=== PATIENT | female | born 1935 | race Caucasian/White ===

== ENCOUNTER 2016-11-13 09:45 | Emergency (ER) | payer MEDICAID, MEDICARE, OTHER ==
[~2016-11-13] VITALS: Ht 170.2 cm; Wt 75.0 kg
[2016-11-13] VITALS (17 sets, daily range): BP systolic 52–91; BP diastolic 34–50; PULSE 78–102; RESP 16–30; TEMP 98.7; O2SAT 86–98
[2016-11-13] MEDS ORDERED: ETOMIDATE 20 MG/10 ML VIAL ONE (09:55)
[2016-11-13] MEDS ORDERED: SUCCINYLCHOLINE CHLORIDE 200 MG/10 ML VIAL ONE (09:55)
[2016-11-13] MEDS ORDERED: NOREPINEPHRINE 4 MG/4 ML AMP ONE (10:05)
[2016-11-13] MEDS ORDERED: metroNIDAZOLE 500 MG INJ 100 ML IV STA (10:06)
[2016-11-13] MEDS ORDERED: CEFEPIME INJ 2,000 MG in SODIUM CHLORIDE 0.9% INJ 100 ML IV STA (10:06)
[2016-11-13] MEDS ORDERED: VANCOMYCIN INJ 1,000 MG in SODIUM CHLOR 0.9% 250 ML INJ 250 ML IV STA (10:06)
[2016-11-13] MEDS ORDERED: SODIUM CHLOR 0.9% 1000 ML INJ 1,000 ML IV ONE ×3 (10:15)
[2016-11-13 10:38] LABS: AUTOMATED NEUTROPHIL # 69.3 TH/MM3 (1.8-7.7); BASOPHIL # 0.1 TH/MM3 (0-0.2); BASOPHIL % 0.1 % (0.0-2.0); EOSINOPHIL # 0.1 TH/MM3 (0-0.4); EOSINOPHIL % 0.2 % (0.0-4.0); HEMATOCRIT 46.8 % (35.0-46.0); LYMPH % 4.4 % (9.0-44.0); LYMPHOCYTE # 3.3 TH/MM3 (1.0-4.8); MEAN CELL VOLUME 81.2 FL (80.0-100.0); MEAN CORPUSCULAR HGB CONC 30.8 % (32.0-36.0); MONO % 3.1 % (0.0-8.0); NEUT % 92.2 % (16.0-70.0); PLATELET COUNT 273 TH/MM3 (150-450); RED BLOOD COUNT 5.77 MIL/MM3 (4.00-5.30); RED CELL DISTRIBUTION WIDTH 17.4 % (11.6-17.2); WHITE BLOOD COUNT 75.2 TH/MM3 (4.0-11.0)
[2016-11-13 10:39] LABS: HEMO FLAGS AUTO DIFF
[2016-11-13] MEDS ORDERED: MIDAZOLAM HCL 2 MG/2 ML VIAL IV PUSH ONE (10:45)
--- NOTE | 2016-11-13 10:50 | RADRPT ---
EXAM DATE/TIME: 11/13/2016 10:20 [place] COMPARISON: No previous studies available for comparison. INDICATIONS: Altered mental status, unresponsive. ET tube placement MEDICAL HISTORY: None. SURGICAL HISTORY: None. ENCOUNTER: Initial ACUITY: 1 day PAIN SCORE: Non-responsive. LOCATION: Bilateral chest FINDINGS: A single view of the chest demonstrates the endotracheal tube is seen with its tip overlying the righ t bronchus. It should be slightly retracted. Some atelectasis of left lower lobe. Left upper lung is clear. Right lung is clear. CONCLUSION: ET tube below the leticia. Collapsed left lower lobe. Heraclio Duran MD on November 13, 2016 at 10:34 Board Certified Radiologist. This report was verified electronically.
[2016-11-13 10:56] LABS: INTERNATIONAL NORMALIZED RATIO 1.2 RATIO; PROTHROMBIN TIME - PATIENT 13.3 SEC (9.8-11.6)
[2016-11-13 10:57] LABS: APTT (PATIENT) 36.4 SEC (24.3-30.1)
--- NOTE | 2016-11-13 10:57 | PD ---
HPI Chief Complaint: Altered Mental Status Time Seen by Provider: 10:05 Travel History International Travel<30 days: No Contact w/Intl Traveler<30days: No Traveled to known affect area: No History of Present Illness HPI Patient is a 81-year-old female who presents to emergency room from [facility] for evaluation of altered mental status. As per EMS, patient was conversive around 5:30 AM. Reports that they went to check on her a few hours later and patient was essentially unresponsive. Reports that she is not on oxygen at home, reports that they found her with an oxygen saturation of 70% on room air. When EMS arrived on scene, they put her on a nonrebreather which brought her up to 95% pulse ox. Patient unresponsive while in the emergency room. Patient unable to provide history of present illness. Call made to patient's daughter and power of staff attorney Ms. Stephy Carreon [facility] Social History Tobacco Use: No Allergies-Medications (Allergen,Severity, Reaction): Coded Allergies: Dilaudid (Verified Allergy, Unknown, 11/13/16) Keflex (Verified Allergy, Unknown, 11/13/16) Rifampin (Verified Allergy, Unknown, 11/13/16) Review of Systems ROS Limitations: Altered Mental Status, Unresponsive Physical Exam Narrative GENERAL: severe distress SKIN: Warm and dry. Patient pale on exam HEAD: Atraumatic. Normocephalic. EYES: Pupils equal and round. No scleral icterus. No injection or drainage. ENT: No nasal bleeding or discharge. Mucous membranes pink and moist. NECK: Trachea midline. No JVD. CARDIOVASCULAR: Tachycardic No murmur appreciated. RESPIRATORY: No accessory muscle use. Clear to auscultation. Breath sounds equal bilaterally. GASTROINTESTINAL: Abdomen soft, non-tender, nondistended. Wilkins catheter in place with no urine and urine bag MUSCULOSKELETAL: No obvious deformities. No clubbing. No cyanosis. No edema. NEUROLOGICAL: Patient essentially unresponsive, GCS 3 Data Data Last Documented VS Vital Signs Date Time Temp Pulse Resp B/P Pulse Ox O2 Delivery O2 Flow Rate FiO2 11/13/16 14:37 96 Room Air 11/13/16 13:00 78 16 65/43 100 11/13/16 10:15 98.7 11/13/16 10:00 15 Orders Etomidate Inj (Amidate Inj) (11/13/16 09:55) Succinylcholine Inj (Quelicin Inj) (11/13/16 09:55) Electrocardiogram (11/13/16 10:03) Complete Blood Count With Diff (11/13/16 10:03) Comprehensive Metabolic Panel (11/13/16 10:03) Prothrombin Time / Inr (Pt) (11/13/16 10:03) Act Partial Throm Time (Ptt) (11/13/16 10:03) Lactic Acid Sepsis Protocol (11/13/16 10:03) Magnesium (Mg) (11/13/16 10:03) Lipase (11/13/16 10:03) Ckmb (Isoenzyme) Profile (11/13/16 10:03) Troponin I (11/13/16 10:03) Chest, Single Ap (11/13/16 10:03) Arterial Blood Gas (Abg) (11/13/16 10:03) Blood Glucose (11/13/16 10:03) Ecg Monitoring (11/13/16 10:03) Iv Access Insert/Monitor (11/13/16 10:03) Oximetry (11/13/16 10:03) Oxygen Administration (11/13/16 10:03) Norepinephrine Inj (Levophed Inj) (11/13/16 10:05) Place Ng Tube To Low Intermit (11/13/16 10:05) Blood Culture (11/13/16 10:06) Vancomycin Inj (Vancomycin Inj) (11/13/16 10:06) Cefepime Inj (Maxipime Inj) (11/13/16 10:06) Metronidazole 500 Mg Inj (Flagyl 500 Mg (11/13/16 10:06) Sodium Chlor 0.9% 1000 Ml Inj (Ns 1000 M (11/13/16 10:15) Sodium Chlor 0.9% 1000 Ml Inj (Ns 1000 M (11/13/16 10:15) Sodium Chlor 0.9% 1000 Ml Inj (Ns 1000 M (11/13/16 10:15) Insert Temp Sensing Wilkins Cath (11/13/16 10:12) Midazolam Inj (Versed Inj) (11/13/16 10:45) CKMB (11/13/16 10:05) CKMB% (11/13/16 10:05) Consult Palliative Care (11/13/16 ) Hospice Consult (11/13/16 12:26) Code Status (11/13/16 12:35) (Hub Use Only)Inp Phy Cons/Ref (11/13/16 ) Vital Signs (Adult) TONIA.QSHIFT (11/13/16 13:25) ^ Send Patient To (11/13/16 13:25) Discontinue Ng Tube (11/13/16 13:25) ^ Other Nursing Orders (11/13/16 13:25) Morphine Inj (Morphine Inj) (11/13/16 13:30) Lorazepam Inj (Ativan Inj) (11/13/16 13:30) Morphine Inj (Morphine Inj) (11/13/16 13:45) Lorazepam Inj (Ativan Inj) (11/13/16 13:45) Morphine Inj (Morphine Inj) (11/13/16 16:00) Morphine Inj (Morphine Inj) (11/13/16 14:00) Morphine Inj (Morphine Inj) (11/13/16 14:00) Lorazepam Inj (Ativan Inj) (11/13/16 16:00) Lorazepam Inj (Ativan Inj) (11/13/16 14:00) Lorazepam Inj (Ativan Inj) (11/13/16 14:00) Lorazepam Inj (Ativan Inj) (11/13/16 14:00) Acetaminophen Supp (Tylenol Supp) (11/13/16 14:00) Furosemide Inj (Lasix Inj) (11/13/16 14:00) Bisacodyl Supp (Dulcolax Supp) (11/13/16 14:00) Resp Extubation (11/13/16 ) Physician Name Changes (11/13/16 ) Sodium Chloride 0.9% Flush (Ns Flush) (11/13/16 13:45) Sodium Chloride 0.9% Flush (Ns Flush) (11/14/16 09:00) Atropine 1% Opth Soln (Atropine 1% Opth (11/13/16 13:45) Labs Laboratory Tests Test 11/13/16 11/13/16 10:05 11:08 White Blood Count 75.2 TH/MM3 Red Blood Count 5.77 MIL/MM3 Hemoglobin 14.4 GM/DL Hematocrit 46.8 % Mean Corpuscular Volume 81.2 FL Mean Corpuscular Hemoglobin 25.0 PG Mean Corpuscular Hemoglobin 30.8 % Concent Red Cell Distribution Width 17.4 % Platelet Count 273 TH/MM3 Mean Platelet Volume 10.8 FL Neutrophils (%) (Auto) 92.2 % Lymphocytes (%) (Auto) 4.4 % Monocytes (%) (Auto) 3.1 % Eosinophils (%) (Auto) 0.2 % Basophils (%) (Auto) 0.1 % Neutrophils # (Auto) 69.3 TH/MM3 Lymphocytes # (Auto) 3.3 TH/MM3 Monocytes # (Auto) 2.4 TH/MM3 Eosinophils # (Auto) 0.1 TH/MM3 Basophils # (Auto) 0.1 TH/MM3 CBC Comment AUTO DIFF Differential Total Cells 100 Counted Neutrophils % (Manual) 47 % Band Neutrophils % 33 % Lymphocytes % 8 % Monocytes % 8 % Neutrophils # (Manual) 63.2 TH/MM3 Metamyelocytes 4 % Differential Comment FINAL DIFF MANUAL Toxic Granulation 1+ Platelet Estimate NORMAL Platelet Morphology Comment NORMAL Red Cell Morphology Comment NORMAL Prothrombin Time 13.3 SEC Prothromb Time International 1.2 RATIO Ratio Activated Partial 36.4 SEC Thromboplast Time Sodium Level 135 MEQ/L Potassium Level 4.2 MEQ/L Chloride Level 97 MEQ/L Carbon Dioxide Level 12.9 MEQ/L Anion Gap 25 MEQ/L Blood Urea Nitrogen 18 MG/DL Creatinine 2.64 MG/DL Estimat Glomerular Filtration 17 ML/MIN Rate Random Glucose 119 MG/DL Lactic Acid Level 13.4 mmol/L Calcium Level 9.6 MG/DL Magnesium Level 4.2 MG/DL Total Bilirubin 1.5 MG/DL Aspartate Amino Transf 55 U/L (AST/SGOT) Alanine Aminotransferase 26 U/L (ALT/SGPT) Alkaline Phosphatase 144 U/L Total Creatine Kinase 203 U/L Creatine Kinase MB 6.1 NG/ML Creatine Kinase MB % 3.0 % Troponin I 0.77 NG/ML Total Protein 7.6 GM/DL Albumin 3.4 GM/DL Lipase 1883 U/L Blood Gas Puncture Site LT RADIAL Blood Gas Patient Temperature 98.6 Blood Gas HCO3 9 mmol/L Blood Gas Base Excess -18.2 mmol/L Blood Gas Oxygen Saturation 95 % Arterial Blood pH 7.12 Arterial Blood Partial 30 mmHg Pressure CO2 Arterial Blood Partial 274 mmHG Pressure O2 Arterial Blood Oxygen Content 15.9 Vol % Arterial Blood 1.5 % Carboxyhemoglobin Arterial Blood Methemoglobin 2.2 % Blood Gas Hemoglobin 11.4 G/DL Oxygen Delivery Device VENTILATOR Blood Gas Ventilator Setting AC 16/500/5+ Blood Gas Inspired Oxygen 100 % MDM Medical Decision Making Medical Screen Exam Complete: Yes Emergency Medical Condition: Yes Interpretation(s) EKG at 1009: Normal sinus rhythm at 93 bpm, PT/QTc 381/431, moderate ST segment depression on lateral leads Vital Signs Date Time Temp Pulse Resp B/P Pulse Ox O2 Delivery O2 Flow Rate FiO2 11/13/16 10:07 87 100 11/13/16 09:45 98.7 78 30 59/46 86 Differential Diagnosis CVA, intracranial hemorrhage, ACS, electrolyte abnormality, septic shock secondary to urinary tract infection versus pneumonia, influenza, ruptured bladder Narrative Course Patient is a 81-year-old female who presents to emergency room for evaluation of altered mental status. Patient was last seen normal around 5:30 AM this morning and was apparently awake and alert and oriented. [facility], they wanted checked up on patient prior to arrival to emergency room, reports that patient was unresponsive with a pulse ox of 70% on room air. When EMS arrived on scene, patient was placed on a nonrebreather and pulse ox went up to 95%. Patient was unresponsive in the emergency room with a GCS of 3. Call made to patient's POA and daughter Mrs. Stephy Carreon to review CODE STATUS. Mrs Murphy request that patient be made full code until she can go home and get pt 's advanced directives. Patient was intubated for airway protection after conversation with daughter Patient's daugher's Stephy Carreon (POA) and Daphne Vish at bedside, request that CPR not be initiated if pt goes into cardiac arrest Patient's daughter, Ms. Wahl reports that patient was complaining of severe bladder spasms yesterday. Reports that the [facility] to change the Wilkins catheter yesterday. Patient told her daughter prior to daughter leaving that her pain last night to her bladder was the worst pain in her life. Concern for possible ruptured bladder. Wilkins catheter from penitentiary was removed as there was no urine output, and new catheter was placed, blake blood coming out of wilkins patient now with blood coming out of her OG tube and gross melana from her rectrum patient also with collapsed left lung WBC 75.2 with shift with bandemia Lactate 13.4 trop 0.77 Case discussed with pt's family. Understands poor prognosis. Family (GONZALO Carreon) request that patient be on comfort care. They do not want any life sustaining procedures performed, they do not want central line for IV pressors placed or a chest tube placed. Request that patient be made comfortable at this time. Call made to [facility] - reviewed case with Dr. Eric Carlos - will see patient in consult. Patient was seen by Dr. Eric Carlos, family request that patient be placed on hospice Care of patient transferred to Dr Eric Carlos to hospice facility Critical Care Narrative Aggregate critical care time was 75 minutes. Time to perform other separately billable procedures was not included in the critical care time. My time did not include minutes spent treating any other patients simultaneously or on activities that did not directly contribute to the patient's treatment. The services I provided to this patient were to treat and/or prevent clinically significant deterioration that could result in: , decompensation, deterioration I provided critical care services requiring my management, as noted below: Chart data review, documentation time, medication orders and management, vital sign assessments/reviewing monitor data, ordering and reviewing lab tests, ordering and interpreting/reviewing x-rays and diagnostic studies, care of the patient and discussion of the patient with the admitting physicians. Procedures Procedure Narrative After the risks and benefits were discussed the following procedure was performed: INTUBATION: The patient was put in optimal position for the procedure. Rapid sequence intubation was initiated by me". The patient was intubated with a 7.5 cuffed endotracheal tube. Tube placement was confirmed by visualization of the tube and balloon passing through the cords, capnometry and subsequent chest x-ray. Breath sounds were equal and well aerated bilaterally postintubation. No breath sounds over stomach. Patient tolerated procedure well. Diagnosis Primary Impression: Hospice care Ashley Carlos DO Nov 13, 2016 10:57
[2016-11-13 10:59] LABS: ANION GAP 25 MEQ/L (5-15); AST (GOT) 55 U/L (15-37); BICARBONATE 12.9 MEQ/L (21.0-32.0); BLOOD UREA NITROGEN 18 MG/DL (7-18); CHLORIDE 97 MEQ/L (98-107); GLOMERULAR FILTRATION RATE 17 ML/MIN (>89); MAGNESIUM 4.2 MG/DL (1.5-2.5); POTASSIUM 4.2 MEQ/L (3.5-5.1); SODIUM (NA) 135 MEQ/L (136-145)
[2016-11-13 11:09] LABS: ALKALINE PHOSPHATASE 144 U/L (45-117); ALT (GPT) 26 U/L (10-53); CREATINE KINASE 203 U/L (26-192); TOTAL BILIRUBIN ADULT 1.5 MG/DL (0.2-1.0)
[2016-11-13 11:12] LABS: BLOOD GAS BASE EXCESS -18.2 mmol/L (-2-2); BLOOD GAS CARBOXYHEMOGLOBIN 1.5 % (0-4); BLOOD GAS HCO3 9 mmol/L (22-26); BLOOD GAS METHEMOGLOBIN 2.2 % (0-2); BLOOD GAS O2 HGB SATURATION 95 % (90-100); BLOOD GAS OXYGEN CONTENT 15.9 Vol % (12.0-20.0); BLOOD GAS PCO2 30 mmHg (38-42); BLOOD GAS PO2 274 mmHG (61-120); BLOOD GAS TOTAL HGB 11.4 G/DL (12.0-16.0); CRITICAL VALUE YES; DRAW SITE LT RADIAL; FIO2 100 %; NUMBER OF ARTERIAL PUNCTURES 2; OXYGEN DEVICE VENTILATOR; STAT YES; TEMP CORR TO 98.6; ULNAR PULSE PRESENT; VENT SETTINGS AC 16/500/5+
[2016-11-13 11:16] LABS: BANDS 33 % (0-6); METAMYELOCYTES 4 % (0-1); NEUTROPHIL # MANUAL DIFF 63.2 TH/MM3 (1.8-7.7); POLYS (SEG NEUTROPHILS) 47 % (16-70); WBC DIFF SAMPLE 100
[2016-11-13 11:17] LABS: PLATELET ESTIMATE SMEAR NORMAL (NORMAL); PLATELET MORPHOLOGY NORMAL (NORMAL); SCAN/DIFF FINAL DIFF MANUAL; TOXIC GRANULATION 1+ (NORMAL)
[2016-11-13 11:24] LABS: CKMB 6.1 NG/ML (0.5-3.6)
[2016-11-13 12:29] LABS: LACTIC ACID GHOST NOT REPORTABLE
[2016-11-13] MEDS ORDERED: MORPHINE SULFATE 8 MG/ML INJ IV PUSH ONE (13:30)
[2016-11-13] MEDS ORDERED: LORazepam 2 MG/ML VIAL IV ONE ×2 (13:30→13:45)
[2016-11-13] MEDS ORDERED: SODIUM CHLORIDE 0.9% FLUSH 5 ML FLUSH IVF PRN (13:45)
[2016-11-13] MEDS ORDERED: ATROPINE SULFATE 1% OPHT SOLN 2 ML BTL SL PRN (13:45)
[2016-11-13] MEDS ORDERED: MORPHINE SULFATE 4 MG/ML INJ IV ONE (13:45)
[2016-11-13] MEDS ORDERED: BISACODYL 10 MG SUPP PR PRN (14:00)
[2016-11-13] MEDS ORDERED: MORPHINE SULFATE 4 MG/ML INJ IV PRN (14:00)
[2016-11-13] MEDS ORDERED: FUROSEMIDE 20 MG/2 ML VIAL IV PRN (14:00)
[2016-11-13] MEDS ORDERED: ACETAMINOPHEN 650 MG SUPP PR PRN (14:00)
[2016-11-13] MEDS ORDERED: LORazepam 2 MG/ML VIAL IV PRN ×2 (14:00)
[2016-11-13] MEDS ORDERED: LORazepam 2 MG/ML VIAL IVS PRN (14:00)
[2016-11-13] MEDS ORDERED: MORPHINE SULFATE 8 MG/ML INJ IV PUSH PRN (14:00)
--- NOTE | 2016-11-13 15:06 | PD.CONS ---
Consult Service Palliative Care Consult Requested By Dr. Ashley Carlos Primary Care Physician Tiburcio Landeros MD Reason for Consultation a. To assist with evaluation and management of symptoms including:pain, dyspnea, anxiety. b. To assist medical decision maker(s) with: better understanding of current medical conditions; weighing benefits/burdens of medical treatment options; making medical treatment decisions. HPI History of Present Illness Patient is a 81-year-old who presented to the emergency room for altered mental status, has history of paraplegia. Patient reportedly was conversing appropriately, but did complain of some bladder discomfort after Malik was placed. Patient became unresponsive, with a sat of 70% on room air. Pt not on home O2. EMS activated, and arrived at the scene and transferred to the ER. * In the ER pt temp is 98.7, pulse 78, resp 30, BP is 59/46 and pulse ox is 86 % on non rebreather * WBC shows a white count of 75.2, Hgb of 14.4; Hct 46.8; plt 273. * Sodium is 135, potassium is 4.2, chloride is 97, bicarbonate was 12.9, BUN is 18, creatinine is 2.64 * Lactic acid is 13.4, AST is 55, ALT is 26 CK-MB 6.1, as CK is 203, troponin I is 0.77, albumin is 3.4, lipase is 1883 * Blood gas : PH is 7.12, CO2 30, PO2 is 274, bicarbonate is 9 * ET tube below the chiropractor Jaylyn, there is a collapsed left lower lobe * Blood cultures is pending. Patient has respiratory failure and was intubated. Patient and perfused sepsis , was bleeding profusely from the GI, Malik, and oral. Clinical condition continues to deteriorate, appears to be still struggling for air despite intubation. Continues to bleed, and continues to be hypotensive. Sepsis is worsening, and pt is unstable. Patient appears to be declining very quickly on this 81-year-old patient. Prognosis is poor, family patient'slivingwill did not want further aggressive heroic efforts. Palliative care was consulted to review goals of care with family. On my visit patient eyes were open but could not follow commands, appears to be struggling for breathing tachypnea and using accessory muscles. Patient's has OG and has bloody aspirate. At the time patient did not have a rectal tube and has blake GI bleed. Patient is minimally responsive. Pt has a living will and a health care surrogate designated. Most Current [facility] designated Stephy Heard as primary, Claudia Muro as secondary. Pt also has a son Judd Pearson who was a previous Healthcare surrogate when pt was in [place]. Reviewed goals of care with Stephy, Claudia, and Judd (through speaker phone). Course of hospitalization reviewed, and poor prognosis. Family wants to transition to comfort measures only, and that pt's wishes were clear in light of poor prognosis. Hospice was consulted, Pastoral care was consulted, exhibits were signed, for terminal extubation. Family state the patient was dying would not want all these tubes in her. Function/Cognitive Trajectory Patient has paraplegia. Was taking care of in [place] by son, however care became overwhelming. Patient's care was transferred to [place] and to a nursing facility where the 2 daughters acted as healthcare surrogate. Patients s appears to have declined very quickly, was responsive and talking appropriately the night before admission to the hospital. She was able to have a control clerk food and beverage annot her in the nursing facility for Thursday. Review of Systems ROS Limitations: Clinical Condition (could not elicit review of systems) Past Family Social History Coded Allergies: Dilaudid (Verified Allergy, Unknown, 11/13/16) Keflex (Verified Allergy, Unknown, 11/13/16) Rifampin (Verified Allergy, Unknown, 11/13/16) Past Medical History Paraplegia, hypertension, GERD, neuropathy, neuritis, actinic keratosis, benign neoplasm, hypertension, dyslipidemia, depression Reported Medications Baclofen Calcium Docusate, Helquist Lexapro Neurontin Prilosec Oxybutynin Tylenol prn Milk of magnesia when necessary Current Medications Medications (Trade) Dose Ordered Sig/Eduar Route Start Time Stop Time Status Last Admin (Morphine Inj) 4 mg Q4HR IV 11/13/16 16:00 (Morphine Inj) 4 mg Q30M PRN IV 11/13/16 14:00 (Morphine Inj) 6 mg Q30M PRN IV PUSH 11/13/16 14:00 (Ativan Inj) 1 mg Q4HR IV 11/13/16 16:00 (Ativan Inj) 1 mg Q1H PRN IV 11/13/16 14:00 (Ativan Inj) 2 mg Q1H PRN IV 3/2/17 14:00 (Ativan Inj) 2 mg Q15M PRN IVS 11/13/16 14:00 (Tylenol Supp) 650 mg Q4H PRN HI 11/13/16 14:00 (Lasix Inj) 20 mg Q6H PRN IV 11/13/16 14:00 (Dulcolax Supp) 10 mg DAILY PRN HI 11/13/16 14:00 (NS Flush) 2 ml UNSCH PRN IVF 11/13/16 13:45 (NS Flush) 2 ml BID IVF 11/14/16 09:00 (Atropine 1% Opth Soln) 2 drop Q4H PRN SL 11/13/16 13:45 11/13/16 14:06 Family History Unable to elicit of the current time Substance Use Tobacco: No Alcohol: No Prescription med abuse: No Illicits: No Psychosocial 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 Today's verbally stated goals: transition to comfort measures Physical Exam Vital Signs Date Time Temp Pulse Resp B/P Pulse Ox O2 Delivery O2 Flow Rate FiO2 11/13/16 13:00 78 16 65/43 98 Ventilator 100 11/13/16 12:30 80 16 60/39 98 Ventilator 100 11/13/16 11:45 85 16 61/35 98 Ventilator 100 11/13/16 11:30 96 100 11/13/16 11:25 86 16 63/41 98 Ventilator 100 11/13/16 11:16 100 11/13/16 11:15 90 16 64/42 98 Ventilator 100 11/13/16 11:05 92 16 64/41 98 Ventilator 100 11/13/16 10:55 96 16 67/39 98 Ventilator 100 11/13/16 10:45 100 16 73/43 98 Ventilator 100 11/13/16 10:35 102 16 91/50 98 Ventilator 100 11/13/16 10:30 98 16 79/49 98 Ventilator 100 11/13/16 10:20 83 16 62/42 98 Ventilator 100 11/13/16 10:15 98.7 96 16 56/37 98 Ventilator 100 11/13/16 10:07 87 100 11/13/16 10:00 78 30 52/34 97 Non-Rebreather 15 11/13/16 09:45 92 30 86 Non-Rebreather 15 11/13/16 09:45 86 Non-Rebreather 15 11/13/16 09:45 98.7 78 30 59/46 86 Exam CONSTITUTIONAL/GENERAL: This is an adequately in distress, intubated, tachpneic.hypotensive SKIN: No jaundice, rashes, or lesions. Ecchymoses on upper extremities. No wounds seen anteriorly. Skin temperature appropriate. Not diaphoretic. HEAD: Atraumatic. Normocephalic. EYES: eyes open not tracking ENT: ET tube in place. OG tube to suction bloody aspirate. NECK: Trachea midline. Supple, nontender. No palpable thyroid enlargement or nodularity. CARDIOVASCULAR: Regular rate without murmurs, gallops, or rubs RESPIRATORY/CHEST: labored breathing , rhochi bilaterally. decrease lung sound on left side GASTROINTESTINAL: distended, firm, GENITOURINARY: Without palpable bladder distension. Malik catheter in place. MUSCULOSKELETAL: Extremities 1+ edema. LYMPHATICS: No palpable cervical or supraclavicular adenopathy. NEUROLOGICAL: minimally responsive. Diagnostic Tests Laboratory Laboratory Tests Test 11/13/16 11/13/16 10:05 11:08 White Blood Count 75.2 TH/MM3 (4.0-11.0) Red Blood Count 5.77 MIL/MM3 (4.00-5.30) Hemoglobin 14.4 GM/DL (11.6-15.3) Hematocrit 46.8 % (35.0-46.0) Mean Corpuscular Volume 81.2 FL (80.0-100.0) Mean Corpuscular Hemoglobin 25.0 PG (27.0-34.0) Mean Corpuscular Hemoglobin 30.8 % Concent (32.0-36.0) Red Cell Distribution Width 17.4 % (11.6-17.2) Platelet Count 273 TH/MM3 (150-450) Mean Platelet Volume 10.8 FL (7.0-11.0) Neutrophils (%) (Auto) 92.2 % (16.0-70.0) Lymphocytes (%) (Auto) 4.4 % (9.0-44.0) Monocytes (%) (Auto) 3.1 % (0.0-8.0) Eosinophils (%) (Auto) 0.2 % (0.0-4.0) Basophils (%) (Auto) 0.1 % (0.0-2.0) Neutrophils # (Auto) 69.3 TH/MM3 (1.8-7.7) Lymphocytes # (Auto) 3.3 TH/MM3 (1.0-4.8) Monocytes # (Auto) 2.4 TH/MM3 (0-0.9) Eosinophils # (Auto) 0.1 TH/MM3 (0-0.4) Basophils # (Auto) 0.1 TH/MM3 (0-0.2) CBC Comment AUTO DIFF Differential Total Cells 100 Counted Neutrophils % (Manual) 47 % (16-70) Band Neutrophils % 33 % (0-6) Lymphocytes % 8 % (9-44) Monocytes % 8 % (0-8) Neutrophils # (Manual) 63.2 TH/MM3 (1.8-7.7) Metamyelocytes 4 % (0-1) Differential Comment FINAL DIFF MANUAL Toxic Granulation 1+ (NORMAL) Platelet Estimate NORMAL (NORMAL) Platelet Morphology Comment NORMAL (NORMAL) Red Cell Morphology Comment NORMAL (NORMAL) Prothrombin Time 13.3 SEC (9.8-11.6) Prothromb Time International 1.2 RATIO Ratio Activated Partial 36.4 SEC Thromboplast Time (24.3-30.1) Sodium Level 135 MEQ/L (136-145) Potassium Level 4.2 MEQ/L (3.5-5.1) Chloride Level 97 MEQ/L (98-107) Carbon Dioxide Level 12.9 MEQ/L (21.0-32.0) Anion Gap 25 MEQ/L (5-15) Blood Urea Nitrogen 18 MG/DL (7-18) Creatinine 2.64 MG/DL (0.50-1.00) Estimat Glomerular Filtration 17 ML/MIN (>89) Rate Random Glucose 119 MG/DL (74-106) Lactic Acid Level 13.4 mmol/L (0.4-2.0) Calcium Level 9.6 MG/DL (8.5-10.1) Magnesium Level 4.2 MG/DL (1.5-2.5) Total Bilirubin 1.5 MG/DL (0.2-1.0) Aspartate Amino Transf 55 U/L (15-37) (AST/SGOT) Alanine Aminotransferase 26 U/L (10-53) (ALT/SGPT) Alkaline Phosphatase 144 U/L (45-117) Total Creatine Kinase 203 U/L (26-192) Creatine Kinase MB 6.1 NG/ML (0.5-3.6) Creatine Kinase MB % 3.0 % (0.0-4.0) Troponin I 0.77 NG/ML (0.02-0.05) Total Protein 7.6 GM/DL (6.4-8.2) Albumin 3.4 GM/DL (3.4-5.0) Lipase 1883 U/L (73-393) Blood Gas Puncture Site LT RADIAL Blood Gas Patient Temperature 98.6 Blood Gas HCO3 9 mmol/L (22-26) Blood Gas Base Excess -18.2 mmol/L (-2-2) Blood Gas Oxygen Saturation 95 % (90-100) Arterial Blood pH 7.12 (7.380-7.420) Arterial Blood Partial 30 mmHg (38-42) Pressure CO2 Arterial Blood Partial 274 mmHG Pressure O2 (61-120) Arterial Blood Oxygen Content 15.9 Vol % (12.0-20.0) Arterial Blood 1.5 % (0-4) Carboxyhemoglobin Arterial Blood Methemoglobin 2.2 % (0-2) Blood Gas Hemoglobin 11.4 G/DL (12.0-16.0) Oxygen Delivery Device VENTILATOR Blood Gas Ventilator Setting AC 16/500/5+ Blood Gas Inspired Oxygen 100 % Result Diagram: 11/13/16 1005 11/13/16 1005 Microbiology Microbiology Date/Time Procedure Status Source Growth 11/13/16 10:05 Aerobic Blood Culture Received Blood Peripheral Pending 11/13/16 10:05 Anaerobic Blood Culture Received Blood Peripheral Pending 11/13/16 10:10 Aerobic Blood Culture Received Blood Peripheral Pending 11/13/16 10:10 Anaerobic Blood Culture Received Blood Peripheral Pending Imaging Last Impressions Chest X-Ray 11/13/16 1003 Signed Impressions: Service Date/Time: November 10:20 - CONCLUSION: ET tube below the leticia. Collapsed left lower lobe. Heraclio Duran MD Patient/Family Conference Present at Family Conference: Claudia Keyes Andy and daughter in law. (These are all 4 HCS past and present) Family Conference Time (mins): 30 Family Conference Location: Consult Room, Hallway Issues Discussed: * Palliative care role, purpose, approach * Additional medical, psychosocial, and spiritual history * Patients general health, functional status, and cognitive changes in the months leading up to the current hospitalization * Patient/family understanding of the current medical problems * Patient/family understanding of prognosis * Patients goals of care as best understood from advance directives and/or conversations and/or values * Current medical treatment options and benefits/burdens of those options * Likely scenarios comparing ongoing aggressive care with a transition to comfort measures only * Questions answered to the best of my ability * Palliative care contact information provided Assessment and Plan Disease Oriented Problem List: (1) Pneumothorax (2) Anemia (3) Respiratory failure (4) Sepsis (5) Hypotension (6) GI (gastrointestinal bleed) Symptom Scale: (1) Pain 0-10 Scale: Unable to quantify (2) Dyspnea 0-10 Scale: Unable to quantify (3) Anxiety 0-10 Scale: Unable to quantify Pertinent Non-Medical Issues Psychosocial: Spiritual: Legal: Ethical issues impacting care: Important Contacts Stephy Carreon (daughter and HCS). [phone] Claudia Diehl(daughter and alternate) [phone] Prognosis 81-year-old history of paraplegia, is in severe sepsis, respiratory failure, anemia, actively bleeding on a ventilator, with pneumothorax. Prognosis is poor and family do not want further aggressive measures. 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 Code Status: No Code Plan == capacity- no capacity to make medical decisions. == HCS: Stephy Carreon == goals of care. Reviewed with children/ HCS past and present. 81-year-old history of paraplegia, is in severe sepsis, respiratory failure, anemia, actively bleeding on a ventilator, with pneumothorax. Prognosis is poor and family do not want further aggressive measures. 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 == dyspnea/ pain/ anxiety- prns available. transition to comfort measures, hospice consulted. exhibits sign, will extubate. family amenable to comfort meds i.e ativan, and morphine for dyspnea, anxiety, and pain. == consult pastoral care, pt is sikh, control clerk food and beverage has arrived. == Palliative care and hospice will follow. Family now wish for peaceful . Time Spent Total Floor Time (mins): 80 Face to Face Time (mins): 50 >50% Counseling/Coord of Care: Yes Thank you for the opportunity to participate in the care of Ms. Carolina. Attestation To help prompt me to consider important information that might be impacting today's encounter and assessment, information from prior notes written by myself or my colleagues may have been "brought forward" into today's note. My signature on this note, however, is an attestation that I personally performed the exam, history, and/or decision-making noted today, and, unless otherwise indicated, the interactions with patient, family, and staff as well as the review of records all occurred today. I also attest that the listed assessment and stated plan reflect my best clinical judgment today based on the combination of historical information, prior notes, and today's exam/ interactions. When time spent is documented, it refers only to time spent today by the signer, or if indicated, combined time spent today by collaborating physician/nurse practitioner. Eric Carlos MD Nov 13, 2016 15:05
[2016-11-13] MEDS ORDERED: MORPHINE SULFATE 4 MG/ML INJ IV SCH (16:00)
[2016-11-13] MEDS ORDERED: LORazepam 2 MG/ML VIAL IV SCH (16:00)
[2016-11-14] MEDS ORDERED: SODIUM CHLORIDE 0.9% FLUSH 5 ML FLUSH IVF SCH (09:00)
--- NOTE | 2016-11-14 23:43 | EKG ---
Date Performed: 11/13/2016 Time Performed: 10:09:26 PTAGE: 81 years EKG: Sinus rhythm MODERATE ST DEPRESSION ABNORMAL ECG NO PREVIOUS TRACING DOCTOR: Luis Simpson Interpretating Date/Time 11/14/2016 23:41:23
== END 2016-11-13 15:30 | disposition expired ==
LOC: NEPC 09:45
DX: D64.9 Anemia, unspecified (principal); A41.9 Sepsis, unspecified organism; G82.20 Paraplegia, unspecified; J93.9 Pneumothorax, unspecified; J96.90 Respiratory failure, unspecified, unspecified whether with hypoxia or hypercapnia; I95.9 Hypotension, unspecified; R94.31 Abnormal electrocardiogram [ECG] [EKG]; R41.82 Altered mental status, unspecified; J98.11 Atelectasis
CPT/HCPCS: 31500; 36600; 71010; 80053; 82550; 82552; 82805; 83605; 83690; 83735; 84484; 85007; 85027; 85610; 85730; 87040; 87205; 93005; 96374; 96375; 99291; 99292; J0330; J2060; J2250; J2270; J7030